=== PATIENT | female | born 1990 | race Caucasian/White ===

== ENCOUNTER 2016-10-31 13:41 | Emergency (ER) | payer OTHER ==
[2016-10-31 13:56] VITALS: BP 127/67
--- NOTE | 2016-10-31 14:12 | UC ---
Complaint Female HPI - HPI Summary HPI Summary: compliant of burning eith urination discomfort that that started 4 days ago increase in frequency and urgency of usirotaion feels like she cannot express her urine easily mild suprapubic pain denies flank pain and back pain denies fever, denies N/V/D denies abnormal vaginal discaherge taking Azo with mild relief - History Of Current Complaint Chief Complaint: UCGU Stated Complaint: URINARY COMPLAINT Time Seen by Provider: 10/31/16 14:04 Hx Obtained From: Patient Hx Last Menstrual Period: 10/20/16 - Allergies/Home Medications Allergies/Adverse Reactions: Allergies Allergy/AdvReac Type Severity Reaction Status Date / Time No Known Allergies Allergy Verified 10/31/16 13:49 Home Medications: Home Medications Norethin Acet & Estrad-Fe [Zenobia Fe .03/23] 1 tab PO 1700 10/31/16 [History Confirmed 10/31/16] Phenazopyridine HCl [Azo Standard Maximum Stre] 195 mg PO TID PRN 10/31/16 [ History Confirmed 10/31/16] PMH/Surg Hx/FS Hx/Imm Hx Previously Healthy: Yes - Surgical History Surgical History: Yes Surgery Procedure, Year, and Place: Right ACL and Meniscus, 2009, [place]; Tonsillectomy and Ear Tubes, ~1992 - Family History Known Family History: Positive: Hypertension - father Negative: Cardiac Disease, Diabetes - Social History Occupation: Employed Full-time Alcohol Use: Occasionally Substance Use Type: Marijuana Substance Use Comment - Amount & Last Used: "maybe once a week"; 10/28/16 Smoking Status (MU): Light Every Day Tobacco Smoker Type: Cigarettes Amount Used/How Often: ~1/3 PPD Length of Time of Smoking/Using Tobacco: 9 Years Have You Smoked in the Last Year: Yes Cessation Counseling: Patient Advised to Stop - Immunization History Most Recent Influenza Vaccination: Not the 2016/2016 Season Review of Systems Constitutional: Negative Skin: Negative Eyes: Negative ENT: Negative Respiratory: Negative Cardiovascular: Negative Gastrointestinal: Abdominal Pain Genitourinary: Dysuria, Frequency, Urgency Motor: Negative Neurovascular: Negative Musculoskeletal: Negative Neurological: Negative Psychological: Negative All Other Systems Reviewed And Are Negative: Yes Physical Exam Triage Information Reviewed: Yes Appearance: No Pain Distress, Well-Nourished Vital Signs: Initial Vital Signs Temp 99 F 10/31/16 13:46 Pulse 96 10/31/16 13:46 Resp 16 10/31/16 13:46 BP 127/67 10/31/16 13:46 Pulse Ox 94 10/31/16 13:46 Vital Signs Reviewed: Yes Eyes: Positive: Conjunctiva Clear ENT: Positive: Normal ENT inspection Neck: Positive: No Lymphadenopathy Respiratory: Positive: Lungs clear, Normal breath sounds, No respiratory distress Cardiovascular: Positive: RRR, Pulses Normal Abdomen Description: Positive: Nontender, No Organomegaly, Soft. Negative: CVA Tenderness (R), CVA Tenderness (L), Distended, Guarding Bowel Sounds: Positive: Present Musculoskeletal Exam: Normal Neurological: Positive: Alert Psychological Exam: Normal Skin Exam: Normal Complaint Female Dx - Differential Dx/Diagnosis Differential Diagnosis/HQI/PQRI: Ureteral Stone, Urinary Tract Infection, Other - pyleonephrtis Provider Diagnoses: UTI Discharge - Discharge Plan Condition: Stable Disposition: HOME Prescriptions: Nitrofurantoin Monohyd Macro [Macrobid] 100 mg PO BID #10 cap Phenazopyridine TAB* [Pyridium TAB*] 100 mg PO TID #12 tab Patient Education Materials: Urinary Tract Infection in Women (ED) Referrals: Layla Sultana PA [Primary Care Provider] - Additional Instructions: URINARY TRACT INFECTIONS What are Urinary Tract Infections? Commonly referred to as bladder or kidney infections, urinary tract infections ( UTIs) are caused by bacteria. Bacteria enter the body through the tube that carries urine from the bladder to the outside of the body (urethra). UTIs are more common in infants, young children (especially girls) and women. Females get UTIs more often because the urethra is much shorter than males. Sexual intercourse increases the risk of infection in women. Diabetic and women also have an increased susceptibility to urinary tract infections. Symptoms Might Include: Abdomen, side, or back pain Frequency, urgency, or trouble urinating Pain or burning when urinating Dark, cloudy, bloody, or foul-smelling urine Fever Poor appetite or refusal to eat Vomiting Treatment Recommendations: Medicine should be taken exactly as prescribed. Drink plenty of fluids, especially water. Cranberry juice is a good choice of beverage, because it increases the acidity of urine, which helps to prevent infection. Empty the bladder as soon as the urge is felt. Encourage children to go to the bathroom several times per day. Women should empty the bladder after sexual intercourse. After using the toilet, always wipe front to back. Wear loose fitting clothing (including underwear). Uncircumcised males should wash the foreskin on the penis regularly. Call Your Doctor or Return Here IF: Fever (greater than 101F by mouth) or chills. Back or flank pain begins or worsens. Nausea or vomiting begins or worsens. Unable to take your medications because of vomiting. Urinating less or not at all. Discharge from the vagina or penis. Any other new symptoms that worry you.
== END 2016-10-31 14:34 | disposition home or self-care (01) ==
LOC: UCCORT 13:41
DX: N39.0 Urinary tract infection, site not specified (principal); F17.210 Nicotine dependence, cigarettes, uncomplicated
CPT/HCPCS: 87077; 87086; 87186; 99212; G0463

== ENCOUNTER 2017-07-06 15:34 | Emergency (ER) | payer MEDICAID, OTHER ==
[2017-07-06 15:44] VITALS: BP 121/68
--- NOTE | 2017-07-06 15:55 | UC ---
Complaint Female HPI - HPI Summary HPI Summary: vaginal discharge x 2 days + itchy vaginal area , feels like yeast infection hx of paddy vaginitis - History Of Current Complaint Chief Complaint: UCGU Stated Complaint: PERSONAL Time Seen by Provider: 07/06/17 15:46 Hx Obtained From: Patient Hx Last Menstrual Period: 06/22/17 ?: No Onset/Duration: Gradual Onset, Lasting Days - 2, Still Present Timing: Constant Severity Initially: Moderate Severity Currently: Moderate Character: Not Applicable Aggravating Factor(s): Nothing Associated Signs And Symptoms: Positive: Vaginal Discharge - white. Negative: Fever, Back Pain, Vaginal Bleeding/Discharge, Nausea, Vomiting(# Of Episodes =) , Genital Swelling, Genital Blisters, Retained Foregin Body (Specify) Related Hx: Similar Episode/Dx as: - yeast - Allergies/Home Medications Allergies/Adverse Reactions: Allergies Allergy/AdvReac Type Severity Reaction Status Date / Time No Known Allergies Allergy Verified 07/06/17 15:44 PMH/Surg Hx/FS Hx/Imm Hx Previously Healthy: Yes - Surgical History Surgical History: Yes Surgery Procedure, Year, and Place: Right ACL and Meniscus, 2009, [place]; Tonsillectomy and Ear Tubes, ~1992 - Family History Known Family History: Positive: Hypertension - father Negative: Cardiac Disease, Diabetes - Social History Alcohol Use: Occasionally Substance Use Type: None Substance Use Comment - Amount & Last Used: "maybe once a week"; 10/28/16 Smoking Status (MU): Former Smoker Type: Cigarettes Amount Used/How Often: ~1/3 PPD Length of Time of Smoking/Using Tobacco: 9 Years Have You Smoked in the Last Year: Yes When Did the Patient Quit Smoking/Using Tobacco: May 2017 - Immunization History Most Recent Influenza Vaccination: no Review of Systems Constitutional: Negative Skin: Negative Eyes: Negative ENT: Negative Respiratory: Negative Gastrointestinal: Negative Motor: Negative Neurovascular: Negative All Other Systems Reviewed And Are Negative: Yes Physical Exam Triage Information Reviewed: Yes Appearance: Well-Appearing, No Pain Distress, Well-Nourished Vital Signs: Initial Vital Signs Temp 98 F 07/06/17 15:36 Pulse 92 07/06/17 15:36 Resp 14 07/06/17 15:36 BP 121/68 07/06/17 15:36 Pulse Ox 99 07/06/17 15:36 Vital Signs Reviewed: Yes Eyes: Positive: Conjunctiva Clear ENT: Positive: Normal ENT inspection, Hearing grossly normal, Pharynx normal Neck: Positive: Supple, Nontender, No Lymphadenopathy Respiratory: Positive: Chest non-tender, Lungs clear, Normal breath sounds Cardiovascular: Positive: RRR, No Murmur, Pulses Normal Abdominal Exam: Normal Abdomen Description: Positive: Nontender, Soft Bowel Sounds: Positive: Present Skin Exam: Normal Complaint Female Dx - Differential Dx/Diagnosis Provider Diagnoses: paddy vaginitis Discharge - Discharge Plan Condition: Stable Disposition: HOME Prescriptions: Fluconazole [Diflucan 150 MG (NF)] 150 mg PO ONCE #2 tab Patient Education Materials: Vulvovaginal Candidiasis (ED) Referrals: Humaira Pena MD [Primary Care Provider] - 7 Days
== END 2017-07-06 15:59 | disposition home or self-care (01) ==
LOC: UCCORT 15:34
DX: B37.3 Candidiasis of vulva and vagina (principal); Z87.891 Personal history of nicotine dependence
CPT/HCPCS: 99212; G0463

== ENCOUNTER 2018-04-28 08:00 | Emergency (ER) | payer OTHER ==
[2018-04-28 08:18] VITALS: BP 109/59
--- NOTE | 2018-04-28 08:40 | UC ---
Skin Complaint HPI - HPI Summary HPI Summary: This patient is a 27-year-old female that presents here with a vesicular rash to her abdomen for less than 48 hours. States she has had shingles in the past. Her rash is pruritic and painful. - History of Current Complaint Chief Complaint: UCSkin Time Seen by Provider: 04/28/18 08:29 Stated Complaint: SKIN COMPLAINT Hx Obtained From: Patient Hx Last Menstrual Period: 04/26/18 Onset/Duration: Gradual Onset, Lasting Days Timing: Constant Onset Severity: Mild Current Severity: Moderate Pain Intensity: 5 Pain Scale Used: 0-10 Numeric Location: Other - left abd Aggravating Factor(s): Nothing Alleviating Factor(s): Nothing - Allergy/Home Medications Allergies/Adverse Reactions: Allergies Allergy/AdvReac Type Severity Reaction Status Date / Time No Known Allergies Allergy Verified 04/28/18 08:11 Review of Systems Constitutional: Negative Skin: Rash Eyes: Negative ENT: Negative Respiratory: Negative Cardiovascular: Negative Gastrointestinal: Negative Genitourinary: Negative Motor: Negative Neurovascular: Negative Musculoskeletal: Negative Neurological: Negative Psychological: Negative Is Patient Immunocompromised?: No All Other Systems Reviewed And Are Negative: Yes PMH/Surg Hx/FS Hx/Imm Hx Previously Healthy: Yes - Surgical History Surgical History: Yes Surgery Procedure, Year, and Place: Right ACL and Meniscus, 2009, [place]; Tonsillectomy and Ear Tubes, ~1992 - Family History Known Family History: Positive: Hypertension - father Negative: Cardiac Disease, Diabetes - Social History Alcohol Use: Occasionally Substance Use Type: None Substance Use Comment - Amount & Last Used: "maybe once a week"; 10/28/16 Smoking Status (MU): Former Smoker Type: Cigarettes Amount Used/How Often: ~1/3 PPD Length of Time of Smoking/Using Tobacco: 9 Years Have You Smoked in the Last Year: Yes When Did the Patient Quit Smoking/Using Tobacco: May 2017 - Immunization History Most Recent Influenza Vaccination: no Physical Exam Triage Information Reviewed: Yes Appearance: Well-Appearing, No Pain Distress, Well-Nourished Vital Signs: Initial Vital Signs Temp 98.5 F 04/28/18 08:12 Pulse 82 04/28/18 08:12 Resp 14 04/28/18 08:12 BP 109/59 04/28/18 08:12 Pulse Ox 99 04/28/18 08:12 Vital Signs Reviewed: Yes Eyes: Positive: Conjunctiva Clear ENT: Positive: Hearing grossly normal. Negative: Nasal congestion, Nasal drainage, Trismus, Muffled voice, Hoarse voice Neck: Positive: Supple Respiratory: Positive: Lungs clear, Normal breath sounds, No respiratory distress, No accessory muscle use Cardiovascular: Positive: RRR, No Murmur Abdomen Description: Positive: Nontender Bowel Sounds: Positive: Present Musculoskeletal: Positive: ROM Intact, No Edema Neurological: Positive: Alert Psychological Exam: Normal Skin Exam: Other - left lower abd vesicular rash Course/Dx - Diagnoses Provider Diagnoses: herpetic rash abdomen. ? shingles vs other Discharge - Sign-Out/Discharge Documenting (check all that apply): Discharge/Admit/Transfer - Discharge Plan Condition: Stable Disposition: HOME Prescriptions: Famciclovir(NF) [Famvir(NF)] 500 mg PO TID #21 tab Patient Education Materials: Shingles (ED) Referrals: Bria Soto MD [Primary Care Provider] - If Needed Additional Instructions: rash is suspicious for shingles or other herpetic cause - Billing Disposition and Condition Condition: STABLE Disposition: Home Images Front/Back of Body, Lg ([place]): 1 - vesicular rash
== END 2018-04-28 08:40 | disposition home or self-care (01) ==
LOC: UCCORT 08:00
DX: B00.9 Herpesviral infection, unspecified (principal); Z87.891 Personal history of nicotine dependence
CPT/HCPCS: 99212; G0463

== ENCOUNTER 2018-11-27 08:13 | Emergency (ER) | payer OTHER ==
--- OUTSIDE RECORDS SUMMARY | 2018-11-27 08:22 | XMS REPORT | Continuity of Care Document ---
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 Payers Type Date Identification Numbers Payment Provider Subscriber Policy Number: [id number] [place] [facility] Padmaja Olivo PayID: [id number] [address] [place] [address] Policy Number: [id number] Medicaid ### >12 Padmaja Olivo PayID: [id number] [address] [place] [address] Advance Directives Description No Information Available Problems Description No Information Family History Date Family Member(s) Problem(s) Comments Father Hypertension Father Depression Mother Allergic Rhinitis Mother Migraine Headache Mother Hypertension Children None First Brother No Current Problems Social History Type Date Description Comments Sex Unknown Marital Status Significant Other 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[employer]; [employer]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 ETOH Use Occasionally consumes alcohol Tobacco Use Start: Unknown Patient is a current smoker, smokes every day Recreational Drug Use Denies Drug Use Exercise Type/Frequency Exercises regularly through work, walks dogs;, uses fitbit, gets 10k steps per day; 08/27/17 counselled 150min per week 10k steps per day Allergies, Adverse Reactions, Alerts Description No Known Drug Allergies Medications Medication Date Status Form Strength Qnty SIG Indications Ordering Provider Active Chewtabs 0.4-32.5mg chew Unknown Gummies/Dha & 00 1gummys Folic Acid daily Hair Skin And 08/11/20 Hx Tablets 3 po R53.83 Unknown Nails Formula 17 - daily 11/14/19 19 Zenobia Fe Hx Tablets 1.5-30mg-mc Once A Unknown 1.530 00 - g Day 11/14/19 19 Immunizations CPT Code Status Date Vaccine Lot # [id number] Given 08/27/2017 Tdap (Adacel) Ages 7 And Above Only [id number] Refused 08/27/2017 Influenza Virus Vaccine,Quadrivalent,Split,Preserv Free, 0.5mL,Im Vital Signs Date Vital Result Comment 11/15/2018 9:34am Body Temperature 99.0 F Weight 143.00 lb Heart Rate 106 /min BP Systolic 120 mmHg BP Diastolic 72 mmHg Respiratory Rate 16 /min Height 65.75 inches 5'5.75" O2 % BldC Oximetry 100 % BMI (Body Mass Index) 23.3 kg/m2 09/27/2017 2:35pm Weight 134.00 lb Heart Rate 84 /min BP Systolic 124 mmHg BP Diastolic 78 mmHg Respiratory Rate 14 /min Height 65.75 inches 5'5.75" BMI (Body Mass Index) 21.8 kg/m2 08/27/2017 3:13pm Weight 130.00 lb Heart Rate 79 /min BP Systolic 124 mmHg BP Diastolic 72 mmHg Respiratory Rate 14 /min Height 65.75 inches 5'5.75" BMI (Body Mass Index) 21.1 kg/m2 Results Test Date Facility Test Result H/L Range Note CBC With Auto Diff 08/31/2017 [facility] WBC 7.0 10*3/uL (4.1-11.0) 1 RBC 4.78 10*6/uL (4.00-5.40) HGB 14.8 g/dL (12.0-16.0) HCT 44.4 % (36.0-47.0) MCV 92.9 fL (80.0-95.0) MCH 30.9 pg (27.0-32.0) MCHC 33.2 g/dL (32.0-36.0) RDW 13.5 % (10.5-14.5) PLT 241 10*3/uL (150-450) Neut % 59.7 % (35.0-75.0) Lymph % 30.3 % (16.0-52.0) Dawson % 7.5 % (0.0-8.0) Eos % 1.7 % (0.0-5.0) Baso % 0.8 % (0.0-4.0) Neut # 4.2 10*3/uL (1.8-7.7) Lymph # 2.1 10*3/uL (1.2-4.8) Dawson # 0.5 10*3/uL (0.0-0.8) Eos # 0.1 10*3/uL (0.0-0.5) Baso # 0.1 10*3/uL (0.0-0.2) 2 Laboratory test finding 08/31/2017 [facility] TSH 2.210 mIU/L (0.360-4.170 ) 3 Comprehensive Met Panel-[facility] 08/31/2017 [facility] Sodium 139 mmol/L (136- 145) Potassium 4.4 mmol/L (3.6-5.2) Chloride 106 mmol/L (100-108) Co2 26 mmol/L (22-31) Anion Gap 7 mmol/L (7-16) Urea Nitrogen 7 mg/dL (7-24) Creatinine 0.89 mg/dL (0.60-1.00) BUN/Creat Ratio 7.9 RATIO Low (10.0-20.0) Glucose 69 mg/dL Low (70-99) Calcium 8.5 mg/dL (8.4-10.2) Total Protein 7.7 g/dL (6.4-8.2) Albumin 4.0 g/dL (3.5-4.6) Globulin 3.7 g/dL (2.7-4.3) Alb/Glob Ratio 1.1 RATIO Alkaline Phosphatase 44 U/L Low (45-117) Bilirubin,Total 0.4 mg/dL (0.0-1.0) Ast (Sgot) 10 U/L Low (11-39) Alt (SGPT) 18 U/L (12-78) GFR >60 ml/min/1.73m2 (>59) GFR ( Amer) >60 ml/min/1.73m2 (>59) GFR Interpretation (SEE NOTE) 4 Laboratory test finding 08/31/2017 [facility] Vitamin B12 496 pg/mL (193- 986) 5 Lipid 08/31/2017 [facility] Cholesterol @ 145 mg/dL (0-200) Triglyceride @ 74 mg/dL (30-200) HDL Cholesterol @ 71 mg/dL (>40) 6 Chol/HDL Ratio 2.0 RATIO 7 LDL Chol (Calc) 59 mg/dL (<130) 8 1 today letter 2 Unless otherwise specified, testing performed by [facility] [place] [address] 3 Unless otherwise specified, testing performed by [facility] [address] [place] [address] 4 NORMAL KIDNEY FUNCTION OR MILD DISEASE - GFR >OR=60 CHRONIC KIDNEY DISEASE - GFR 15 - 59 RENAL FAILURE - GFR <15 Est. GFR calculation based on the MDRD study equation, which assumes a steady state for creatinine. Est. GFR should not be used for medication dosing. Unless otherwise specified, testing performed by [facility] [place] [address] 5 Unless otherwise specified, testing performed by [facility] [address] [place] [address] 6 PER NCEP ATP III GUIDELINES: RESULTS LOWER THAN 40 MG/DL ARE SUGGESTIVE OF INCREASED RISK FOR CORONARY ARTERY DISEASE. RESULTS > OR=TO 60 MG/DL ARE CONSIDERED A NEGATIVE RISK FACTOR. 7 INTERPRETATION OF CHOL-HDL RATIO CHD RISK FEMALE MALE VERY HIGH >8.3 >14.3 HIGH 5.6- 8.3 6.7- 14.3 AVERAGE 3.7- 5.6 4.0- 6.7 BELOW AVERAGE 2.5- 3.7 2.7- 4.0 PROTECTED <2.5 <2.7 8 PER NCEP ATP III GUIDELINES: OPTIMAL < 100 NEAR OPTIMAL 100 - 129 BORDERLINE HIGH 130 - 159 HIGH 160 - 189 VERY HIGH > 189 Unless otherwise specified, testing performed by [facility] [address] [place] [id number] Procedures Date Code Description Status 11/15/2018 08523 Measure Blood Oxygen Level Single Determination Completed Encounters Type Date Location Provider Dx Diagnosis Office Visit 09/27/2017 2:30p [facility] Bria Soto MD R53.83 Other fatigue F43.22 Adjustment disorder with anxiety L85.3 Xerosis cutis Z23 Encounter for immunization Office Visit 08/27/2017 3:30p [facility] Bria Soto MD R53.83 Other fatigue F43.22 Adjustment disorder with anxiety Z23 Encounter for immunization Plan of Treatment 11/15/2018 - Bria Soto, J06.9 Acute upper respiratory infection, unspecifiedComments:URI--Explained most likely cause is a virus that won't respond to antibiotics. Can expect cough to worsen before it improves, and whole illness course may last up to 3-4 weeks. Please call for increased Shortness of breath, temp >=101, increased cough that's productive of colored sputum, chest pain, or any other concerns that would suggest bacterial chest infection. If you have increasing face pain with nasal discharge that is colored or bloody, we need to consider sinus infection. Please call for any concerning symptoms. Try using a vaporizer at night to help with mouth dryness and sore throat. May try OTC meds to help relieve symptoms such as Robitussin Recommend sinus rinses with saline water 1-4 times daily , may try 1-2 doses of afrin/neosynephrine, dose is low and should notbe absorbed systemically , use only for acute severe sinus pain.Follow up:followup as [id number] state, incidentalComments:care with DR Trevino send noterecommend flu vax once feeling better. offered care here if desired.Follow up:Followup :. (Follow up)
[2018-11-27 08:27] VITALS: BP 122/67
--- NOTE | 2018-11-27 08:32 | UC ---
Respiratory Complaint HPI - HPI Summary HPI Summary: 27 y/o female presents to the urgent care c/o nasal congestion w/ green nasal discharge , sinus pressure and pain for the past 3 weeks. Pt reports about a week ago she has developed a dry cough. Then, sore throat developed. Pain with swallowing is 6/10. She is 19 weeks . A lost of green PND. She has seen her PCP on 11/15 and 11/22 and Dx with Viral URI and advised to rest. Pt denies fever, SOB, chest pain, abdominal pain, pelvic pain, N/V/D. - History of Current Complaint Chief Complaint: UCRespiratory Stated Complaint: SORE THROAT COUGH CONGESTION Time Seen by Provider: 11/27/18 08:31 Hx Obtained From: Patient Hx Last Menstrual Period: 04/26/18 ?: Yes Onset/Duration: Gradual Onset, Lasting Weeks - 3 weeks, Still Present, Worse Since - 4 days Timing: Constant Severity Initially: Mild Severity Currently: Moderate Pain Intensity: 6 - sinus pain Pain Scale Used: 0-10 Numeric Character: Cough: Productive, Sputum Description: - green Aggravating Factors: Recumbent Position Alleviating Factors: OTC Meds - tylenol Associated Signs And Symptoms: Positive: URI, Nasal Congestion, Sinus Discomfort. Negative: Fever, Chills, Wheezing - Risk Factors Pulmonary Embolism Risk Factors: Cardiac Risk Factors: Negative Pseudomonas Risk Factors: Negative Tuberculosis Risk Factors: Negative - Allergies/Home Medications Allergies/Adverse Reactions: Allergies Allergy/AdvReac Type Severity Reaction Status Date / Time No Known Allergies Allergy Verified 11/27/18 08:24 Home Medications: Home Medications Acetaminophen [Acetaminophen Extra Strength] 1,000 mg PO Q6H PRN 11/27/18 [ History Confirmed 11/27/18] Vitamin TAB* 1 tab PO DAILY 11/27/18 [History Confirmed 11/27/18] PMH/Surg Hx/FS Hx/Imm Hx Previously Healthy: Yes - Pt denies PMHX - Surgical History Surgical History: Yes Surgery Procedure, Year, and Place: Right ACL and Meniscus, 2009, [place]; Tonsillectomy and Ear Tubes, ~1992 - Family History Known Family History: Positive: Hypertension - father Negative: Cardiac Disease, Diabetes - Social History Occupation: Employed Full-time Lives: With Family Alcohol Use: None Substance Use Type: None Substance Use Comment - Amount & Last Used: "maybe once a week"; 10/28/16 Smoking Status (MU): Former Smoker Type: Cigarettes Amount Used/How Often: ~1/3 PPD Length of Time of Smoking/Using Tobacco: 9 Years Have You Smoked in the Last Year: Yes When Did the Patient Quit Smoking/Using Tobacco: May 2017 - Immunization History Most Recent Influenza Vaccination: no Review of Systems All Other Systems Reviewed And Are Negative: Yes Constitutional: Positive: Fatigue Skin: Positive: Negative Eyes: Positive: Negative ENT: Positive: Sore Throat, Nasal Discharge - green, Sinus Congestion, Sinus Pain/Tenderness Respiratory: Positive: Cough - productive green phlegm Cardiovascular: Positive: Negative Gastrointestinal: Positive: Negative Genitourinary: Positive: Negative Motor: Positive: Negative Neurovascular: Positive: Negative Musculoskeletal: Positive: Negative Neurological: Positive: Headache - sinus pain Psychological: Positive: Negative Is Patient Immunocompromised?: No Physical Exam - Summary Physical Exam Summary: Vitals: reviewed General: Well developed, well-nourished female patient with NAD. Head and face: Normocephalic and atraumatic, Positive tenderness over the frontal and maxillary sinuses.. Eyes: PERRLA, EOMI x 2. Normal conjunctiva. No eye discharge. ENT: Ears and TM with normal limits. Nose: edematous and erythematous nasal mucosa with with yellowish discharge and erythematous mucosa. Pharynx with erythema, no exudate. +PND yellowish Neck: Supple, no JVD, no carotid bruits and no lymphadenopathy. Lungs: clear, no rales, no rhonchi, no wheezes. CVS: RRR, S1 and S2 present no murmurs or gallops appreciated. Abdomen: soft nontender with positive bowel sounds. Extremities: no edema noted. Neuro: WNL. Skin: warm and dry Triage Information Reviewed: Yes Vital Signs: Initial Vital Signs Temp 98.8 F 11/27/18 08:22 Pulse 105 11/27/18 08:22 Resp 16 11/27/18 08:22 BP 122/67 11/27/18 08:22 Pulse Ox 100 11/27/18 08:22 Diagnostic Evaluation - Laboratory O2 Sat by Pulse Oximetry: 100 Respiratory Course/Dx - Course Course Of Treatment: 27 y/o female presents to the urgent care c/o nasal congestion w/ green nasal discharge , sinus pressure and pain for the past 3 weeks. Pt reports about a week ago she has developed a dry cough. Then, sore throat developed. Pain with swallowing is 6/10. She is 19 weeks . A lost of green PND. She has seen her PCP on 11/15 and 11/22 and Dx with Viral URI and advised to rest. Pt denies fever, SOB, chest pain, abdominal pain, pelvic pain, N/V/D. Hx obtained. Pt w/ Acute bacterial sinusitis on examination. Rapid strep ordered:negative. Pt with 3 weeks of symptoms getting worse and failing symptomatic treatment. Pt Rx Amoxicillin PO and advised to use saline nasal spray to clear sinuses. Discharge instructions explained to Pt. Advised to Return to the clinic or PCP if symptoms do not improve.Pt understood and agreed with plan of care. - Differential Dx/Diagnosis Differential Diagnosis/HQI/PQRI: Asthma, Bronchitis, Influenza, Sinusitis Provider Diagnosis: Acute bacterial sinusitis Discharge - Sign-Out/Discharge Documenting (check all that apply): Patient Departure - D/C home All imaging exams completed and their final reports reviewed: No Studies - Discharge Plan Condition: Stable Disposition: HOME Prescriptions: Amoxicillin PO (*) [Amoxicillin 500 MG CAP*] 500 mg PO Q12H #14 cap Patient Education Materials: Sinusitis (ED) Forms: *Work Release Referrals: Bria Soto MD [Primary Care Provider] - 3 Days Additional Instructions: 1- Please increase fluid intake and rest. take full course of antibiotic to avoid resistance 2-Use saline drops to clear sinuses. Increase fluid intake, rest , eat well 3- Continue taking Tylenol PO to alleviates headache and sinus pain 4- Please f/u with your PCP if symptoms do not improve for further management and treatment - Billing Disposition and Condition Condition: STABLE Disposition: Home
== END 2018-11-27 09:12 | disposition home or self-care (01) ==
LOC: UCCORT 08:13
DX: J01.80 Other acute sinusitis (principal); Z87.891 Personal history of nicotine dependence
CPT/HCPCS: 87651; 99212; G0463

== ENCOUNTER 2019-03-01 07:21 | Emergency (ER) | payer OTHER ==
[2019-03-01 07:37] VITALS: BP 133/66
--- NOTE | 2019-03-01 07:47 | UC ---
Skin Complaint HPI - HPI Summary HPI Summary: 20-year-old woman comes in with a chief complaint of a rash to the right ankle. She noticed it started yesterday. She was not outside very much's she did not see a tick. She's not sure how the rash started she thought maybe she had a mosquito bite. Today she noticed it's a lot more red and the redness is spreading and is also tender to palpation she is worried about cellulitis. No fevers or chills. She's 33 weeks and therefore has not taken any by mouth medications. - History of Current Complaint Chief Complaint: UCSkin Time Seen by Provider: 03/01/19 07:39 Stated Complaint: SKIN CONCERN Hx Last Menstrual Period: 04/26/18 Pain Intensity: 0 - Allergy/Home Medications Allergies/Adverse Reactions: Allergies Allergy/AdvReac Type Severity Reaction Status Date / Time No Known Allergies Allergy Verified 03/01/19 07:32 Home Medications: Home Medications Docusate CAP* [Colace Cap*] 100 mg PO DAILY 03/01/19 [History Confirmed 03/01/19 ] Iron 90 mg PO DAILY 03/01/19 [History Confirmed 03/01/19] Lansoprazole [Prevacid] 15 mg PO DAILY 03/01/19 [History Confirmed 03/01/19] PMH/Surg Hx/FS Hx/Imm Hx Previously Healthy: Yes GI/ History: Gastroesophageal Reflux - Surgical History Surgical History: Yes Surgery Procedure, Year, and Place: Right ACL and Meniscus, 2009, [place]; Tonsillectomy and Ear Tubes, ~1992 - Family History Known Family History: Positive: Hypertension - father Negative: Cardiac Disease, Diabetes - Social History Alcohol Use: None Substance Use Type: None Substance Use Comment - Amount & Last Used: "maybe once a week"; 10/28/16 Smoking Status (MU): Former Smoker Type: Cigarettes Amount Used/How Often: ~1/3 PPD Length of Time of Smoking/Using Tobacco: 9 Years Have You Smoked in the Last Year: Yes When Did the Patient Quit Smoking/Using Tobacco: May 2017 - Immunization History Most Recent Influenza Vaccination: no Review of Systems All Other Systems Reviewed And Are Negative: Yes Constitutional: Positive: Negative Skin: Positive: Other - SEE HPI Eyes: Positive: Negative ENT: Positive: Negative Respiratory: Positive: Negative Cardiovascular: Positive: Negative Gastrointestinal: Positive: Negative Motor: Positive: Negative Neurovascular: Positive: Negative Musculoskeletal: Positive: Negative Neurological: Positive: Negative Psychological: Positive: Negative Is Patient Immunocompromised?: No Physical Exam Triage Information Reviewed: Yes Appearance: Well-Appearing, No Pain Distress, Well-Nourished Vital Signs: Initial Vital Signs Temp 97.6 F 03/01/19 07:34 Pulse 108 03/01/19 07:34 Resp 18 03/01/19 07:34 BP 133/66 03/01/19 07:34 Pulse Ox 100 03/01/19 07:34 Vital Signs Reviewed: Yes Eye Exam: Normal Eyes: Positive: Conjunctiva Clear Neck: Positive: Supple Respiratory: Positive: No respiratory distress Musculoskeletal Exam: Normal Musculoskeletal: Positive: Strength Intact, ROM Intact Neurological Exam: Normal Neurological: Positive: Alert, Muscle Tone Normal Psychological Exam: Normal Psychological: Positive: Age Appropriate Behavior Skin: Positive: Other - RT ANKLE 3CM ERYTHEMA, BLANCHING, NO STREAKING, NO DRAINAGE. Course/Dx - Course Course Of Treatment: LOCALIZED REACTION TO INSECT BITE VERSES CELLULITIS. RE CHECK IF WORSE. - Diagnoses Provider Diagnosis: Rash Discharge - Sign-Out/Discharge Documenting (check all that apply): Patient Departure All imaging exams completed and their final reports reviewed: No Studies - Discharge Plan Condition: Stable Disposition: HOME Prescriptions: Cephalexin CAP* [Keflex CAP*] 500 mg PO TID #21 cap Patient Education Materials: Cellulitis (ED), Acute Rash (ED) Referrals: Bria Soto MD [Primary Care Provider] - Additional Instructions: FOLLOW UP WITH YOUR DOCTOR IF NOT COMPLETELY IMPROVED. GET REEVALUATED SOONER IF YOUR CONDITION WORSENS; SPREAD OF THE RASH, FEVER, YOU FEEL ILL OR ANY QUESTIONS OR CONCERNS. - Billing Disposition and Condition Condition: STABLE Disposition: Home
== END 2019-03-01 07:55 | disposition home or self-care (01) ==
LOC: UCCORT 07:21
DX: R21 Rash and other nonspecific skin eruption (principal); K21.9 Gastro-esophageal reflux disease without esophagitis; Z87.891 Personal history of nicotine dependence
CPT/HCPCS: 99212; G0463

== ENCOUNTER 2019-03-30 07:02 | Emergency (ER) | payer OTHER ==
[2019-03-30 07:29] VITALS: BP 117/67
--- NOTE | 2019-03-30 07:36 | UC ---
Ear Complaint HPI - HPI Summary HPI Summary: Awoke with plugged ear sensation in the middle of the night with muffled hearing. No pain, no recent infection, no headache. - History of Current Complaint Chief Complaint: UCEar Stated Complaint: RIGHT EAR Time Seen by Provider: 03/30/19 07:31 Hx Obtained From: Patient Hx Last Menstrual Period: 04/26/18 ?: Yes - due 04/21/19, healthy Onset/Duration: Sudden Onset Severity Initially: Mild Severity Currently: Mild Pain Intensity: 0 Aggravating Factors: Nothing Alleviating Factors: Nothing Associated Signs/Symptoms: Positive: Hearing Loss - Allergies/Home Medications Allergies/Adverse Reactions: Allergies Allergy/AdvReac Type Severity Reaction Status Date / Time No Known Allergies Allergy Verified 03/30/19 07:26 PMH/Surg Hx/FS Hx/Imm Hx Previously Healthy: Yes GI/ History: Gastroesophageal Reflux - Surgical History Surgical History: Yes Surgery Procedure, Year, and Place: Right ACL and Meniscus, 2009, [place]; Tonsillectomy and Ear Tubes, ~1992 - Family History Known Family History: Positive: Hypertension - father Negative: Cardiac Disease, Diabetes - Social History Occupation: Employed Full-time Lives: With Family Alcohol Use: None Substance Use Type: None Substance Use Comment - Amount & Last Used: "maybe once a week"; 10/28/16 Smoking Status (MU): Former Smoker Type: Cigarettes Amount Used/How Often: ~1/3 PPD Length of Time of Smoking/Using Tobacco: 9 Years Have You Smoked in the Last Year: Yes When Did the Patient Quit Smoking/Using Tobacco: May 2017 - Immunization History Most Recent Influenza Vaccination: no Review of Systems All Other Systems Reviewed And Are Negative: Yes Constitutional: Positive: Negative Skin: Positive: Negative Eyes: Positive: Negative ENT: Positive: Other - decreased hearing. Respiratory: Positive: Negative Cardiovascular: Positive: Negative Gastrointestinal: Positive: Negative Neurological: Negative: Headache Psychological: Positive: Negative Is Patient Immunocompromised?: No Physical Exam Triage Information Reviewed: Yes Appearance: Well-Appearing, No Pain Distress Vital Signs: Initial Vital Signs Temp 98.1 F 03/30/19 07:26 Pulse 93 03/30/19 07:26 Resp 16 03/30/19 07:26 BP 117/67 03/30/19 07:26 Pulse Ox 100 03/30/19 07:26 Eye Exam: Normal ENT: Positive: Pharynx normal, Other - right ear canal with soft cerumen Dental Exam: Normal Neck exam: Normal Respiratory: Positive: Lungs clear, Normal breath sounds Cardiovascular: Positive: RRR, No Murmur Musculoskeletal Exam: Normal Neurological Exam: Normal Psychological Exam: Normal Skin Exam: Normal Ear Complaint Course/Dx - Course Course Of Treatment: cerumen flushed from right ear - Differential Dx/Diagnosis Provider Diagnosis: Impacted cerumen, right ear Discharge - Sign-Out/Discharge Documenting (check all that apply): Patient Departure All imaging exams completed and their final reports reviewed: No Studies - Discharge Plan Condition: Stable Disposition: HOME Patient Education Materials: Cerumen Impaction (ED) Referrals: Bria Soto MD [Primary Care Provider] - Additional Instructions: Follow up if you have recurrent problems. - Billing Disposition and Condition Condition: STABLE Disposition: Home
== END 2019-03-30 07:45 | disposition home or self-care (01) ==
LOC: UCCORT 07:02
DX: H61.21 Impacted cerumen, right ear (principal); Z87.891 Personal history of nicotine dependence
CPT/HCPCS: 99212; G0463